=== PATIENT | male | born 1965 | race Caucasian/White ===

== ENCOUNTER 2016-10-09 03:37 | Observation (INO) | payer BC ==
[~2016-10-09] VITALS: Ht 167.6 cm; Wt 109.1 kg
--- NOTE | ~2016-10-09 | HEMODYNAMI ---
PATIENT:ZURI MIRAMONTES MEDICAL RECORD: [id number] : 67 [id number] ADMISSION DATE: 10/09/16 Generatedon:10/09/201613:28 Patient name: ZURI MIRAMONTES Patient #: [id number] SSN: : 1965 Date of study: 10/09/2016 Page: Of Hemodynamic Procedure Report Patient Data Patient Demographics Procedure consent was obtained First Name: ZURI Gender: Male Last Name: KULWINDER : 1965 Patient #: [id number] Age: 51 year(s) Race: Unknown Additional ID: [id number] Contact details [address]: [address] [place] [address] State: [place] City: [place] Zip code: [address] Admission Admission Data Admission Date: 10/09/2016 Admission Time: 5:22 Room #: D.2119 Weight (lbs.): 240.31 Weight (kg.): 109 Lab Results Lab Result Date: 10/09/2016 Lab Result Time: 0:00 Biochemistry Name Units Result Min Max BUN mg/dl 14 --(--*-)-- 7 18 Creatinine mg/dl 1.1 --(--*-)-- 0.6 1.3 CBC Name Units Result Min Max Hemoglobin g/dl 16 --(--*-)-- 13.5 17.5 Procedure Procedure Types Cath Procedure Diagnostic Procedure C [facility] w/Coronaries FFR/IVUS Intra-Coronary IVUS Initial PCI Procedure Coronary Stent Initial Miscellaneous Procedures Moderate Sedation up to 45 minutes Procedure Description Procedure Date Procedure Date: 10/09/2016 Procedure Start Time: 12:40 Procedure End Time: 13:27 Procedure Staff Name Function Gurwinder Proctor MD Performing Physician Lela Briscoe RN Nurse Brayden Ortega RT Monitor Mauricio Powers RT Scrub Procedure Data Cath Procedure Fluoroscopy Diagnostic fluoroscopy Total fluoroscopy Time: 6.3 time: 6.3 min min Diagnostic fluoroscopy Total fluoroscopy dose: dose: 1805 mGy 1805 mGy Contrast Material Contrast Material Type Amount (ml) Isovue 300 179 Entry Location Entry Primary Successful Side Size Upsize Upsize Entry Closure Succes sful Closure Location (Fr) 1 (Fr) 2 (Fr) Remarks Device Remarks Femoral Right 5 Fr 6 Fr Exoseal artery Short Estimated blood loss: 10 ml Diagnostic catheters Device Type Used For End Catheter Placement Cordis 5Fr JL 4.0 Procedure Catheter (MP) Cordis 5Fr 3DRC Catheter Procedure (MP) Cordis 5Fr Pigtail Procedure Catheter (MP) Procedure Complications No complications Procedure Medications Medication Administration Route Dosage Oxygen NC 2 l/min Heparin Flush Bag added to field 2 bags (1000units/500ml NS) Lidocaine 2% added to field 20 Versed I.V. 1 mg Fentanyl I.V. 50 mcg Fentanyl I.V. 50 mcg Versed I.V. 0.5 mg Versed I.V. 0.5 mg Heparin Bolus I.V. 17066 units Nitroglycerin IC/IA I.C. 100 mcg Solumedrol I.V. 125 mg Brilinta P.O. 180 mg Hemodynamics Rest HGB: 16 (g/dl) Heart Rate: 77 (bpm) Pressure Samples Time Site Value (mmHg) Purpose Heart Use Rate(bpm) 12:43 AO 102/74(86) Snapshot 72 12:47 LV 132/6,26 Snapshot 78 12:48 AO 141/82(105) Pullback 85 12:48 LV 126/13,26 Pullback 85 Gradients Valve Time Site 1 Site 2 Mean SEP/DFP Peak To Heart Use (mmHg) (sec/min) Peak Rate (mmHg) (bpm) Aortic 12:48 LV AO 0 6 0 85 126/13,26 141/82(105) Calculations Valve P-P Mean Valve Index Valve Source Name Gradient Area Flow (cm2) Aortic 0 0 0 0 Snapshots Pre Cath Intra NCS Post Cath Vital Signs Time Heart Resp SPO2 etCO2 [id number] NIBP (mmHg) Rhythm Pain Sedation Rate (ipm) (%) (mmHg) (mmHg) Status Level (bpm) 12:24:22 75 24 100 0 0 122/78(95) NSR 0 (11) 10(A) , No pain 12:28:32 74 24 100 0 0 118/77(107) NSR 0 (11) 10(A) , No pain 12:32:44 78 20 100 0 0 116/72(92) NSR 0 (11) 10(A) , No pain 12:36:52 82 18 99 0 0 115/74(95) NSR 0 (11) 10(A) , No pain 12:41:02 79 16 99 0 0 122/71(107) NSR 0 (11) 9(A) , No pain 12:45:11 84 16 96 0 0 116/77(100) NSR 0 (11) 9(A) , No pain 12:49:17 84 16 97 0 0 110/81(91) NSR 0 (11) 9(A) , No pain 12:53:21 83 17 95 0 0 117/81(92) NSR 0 (11) 9(A) , No pain 12:57:18 89 19 95 0 0 116/91(110) NSR 0 (11) 9(A) , No pain 13:01:26 90 19 97 0 0 108/75(94) NSR 0 (11) 9(A) , No pain 13:05:30 84 20 98 0 0 122/79(92) NSR 0 (11) 9(A) , No pain 13:09:42 76 18 100 0 0 126/75(91) NSR 0 (11) 9(A) , No pain 13:13:52 89 24 100 0 0 120/82(97) NSR 0 (11) 9(A) , No pain 13:17:17 112 22 100 0 0 104/86(103) NSR 0 (11) 10(A) , No pain 13:22:16 98 26 97 0 0 Measuring NSR 0 (11) 10(A) , No pain 13:23:32 98 26 97 0 0 Out of NSR 0 (11) 10(A) range , No pain 13:26:01 88 22 97 0 0 121/88(114) NSR 0 (11) 10(A) , No pain Medications Time Medication Route Dose Verified Delivered Reason Notes Effectiveness by by 12:28:09 Oxygen NC 2 Gurwinder Lela Per physician l/min Arnoldo Briscoe RN 12:28:16 Heparin Flush added 2 Gurwinder Gurwinder used for Bag to bags Arnoldo Proctor MD procedure (1000units/500ml field NS) 12:28:23 Lidocaine 2% added 20ml Gurwinder Gurwinder used for to vial Arnoldo Proctor MD procedure field 12:31:59 Versed I.V. 1 mg Gurwinder Lela for sedation Arnoldo Briscoe RN 12:32:06 Fentanyl I.V. 50 Gurwinder Lela for sedation mcg Arnoldo Briscoe RN 12:34:12 Fentanyl I.V. 50 Gurwinder Lela for sedation mcg Arnoldo Briscoe RN 12:34:17 Versed I.V. 0.5 Gurwinder Lela for sedation mg Arnoldo Briscoe RN 12:39:47 Versed I.V. 0.5 Gurwinder Lela for sedation mg Arnoldo Briscoe RN 12:53:10 Heparin Bolus I.V. 35861 Gurwinder Lela for dose v erified units Arnoldo Briscoe RN anticoagulation wtih dr proctor 13:12:49 Nitroglycerin I.C. 100 Gurwinder Gurwinder for IC/IA mcg Arnoldo Proctor MD vasodilation 13:18:01 Solumedrol I.V. 125 Gurwinder Lela Per physician pt hav ing mg Arnoldo Briscoe RN uncontrollable shivering, denies being cold. bairhugger is on and has been warming for entire case. dr proctor is aware and at bedside 13:21:48 Brilinta P.O. 180 Gurwinder Lela for mg Arnoldo Briscoe RN antiplatelet therapy Procedure Log Time Note 12:00:54 Mauricio Gio RT(R) sent for patient. Start room use. 12:06:56 Time tracking: Regular hours 12:07:00 Plan of Care:Hemodynamics will remain stable., Cardiac rhythm will remain stable., Comfort level will be maintained., Respiratory function will remain adequate., Patient/ family verbilizes understanding of procedure., Procedure tolerated without complication., Recovers from procedure without complications.. 12:17:14 Patient received from PCU to CCL 1 Alert and oriented. Tansferred to table in Supine position. 12:17:15 Warm blankets applied, and anette hugger turned on for patient comfort. 12:17:15 Correct patient and procedure confirmed by team. 12:17:17 Signed procedure consent form obtained from patient. 12:17:18 ECG and BP/O2 sat monitors applied to patient. 12:17:19 Full Disclosure recording started 12::21 Vital chart was started 12:28:09 Oxygen 2 l/min NC was administered by Lela Briscoe RN; Per physician; 12::16 Heparin Flush Bag (1000units/500ml NS) 2 bags added to field was administered by Gurwinder Proctor MD; used for procedure; :: Lidocaine 2% 20ml vial added to field was administered by Gurwinder Proctor MD; used for procedure; 12::30 Baseline sample Acquired. 12::34 Rhythm: sinus rhythm 12::53 H&P Date Dictated: 10/09/2016 Within 30 days and on chart.. 12::54 Pre-procedure instructions explained to patient. 12::54 Pre-op teaching completed and patient verbalized understanding. 12:29:55 Family in waiting room. 12:30:00 Patient NPO since Midnight. 12:30:02 Is the patient allergic to Iodine/contrast media? No. 12:30:03 Is patient on blood thinner?No 12:30:05 Patient diabetic? No. 12:30:08 Previous problem with sedation/anesthesia? No ? 12:30:10 Snore? Yes 12:30:11 Sleep apnea? Yes 12:30:13 Deviated septum? No 12:30:13 Opens mouth fully? Yes 12:30:14 Sticks out tongue? Yes 12:30:16 Airway obstruction? No ? 12:30:19 Dentures? No ? 12:30:29 Pre procedure: right dorsailis pedis pulse 1+ Palpable, but thready & weak; easily obliterated 12:30:30 FAILED YEHUDA'S 12:30:31 Modified Yehuda's test Ulnar > 7 seconds. 12:30:32 Patient pain scale 0/10 ?. 12:31:00 IV patent on arrival in left forearm with 0.9% NaCl at [facility]. 12:31:14 Lab results completed and on chart. 12::17 Right groin area was prepped with chlora-prep and draped in sterile fashion 12:31:18 Alarms reviewed by R. N. 12::19 Sharps counted by scrub and verified by R.N. 12::21 --------ALL STOP TIME OUT------ 12:31:21 Final Timeout: patient, procedure, and site verified with staff and physician. All members of the team are in agreement. 12:31:23 Right groin site verified by team. 12:31: Physical assessment completed. ASA score P 2 - A patient with mild systemic disease as per Gurwinder Proctor MD. 12:31:28 Sedation plan: IV Moderate Sedation Versed, Fentanyl 12:31:59 Versed 1 mg I.V. was administered by Lela Briscoe RN; for sedation; 12:32:06 Fentanyl 50 mcg I.V. was administered by Lela Briscoe RN; for sedation; 12:33:29 Use device set Femoral Dx 12:33:31 Tegaderm 4 x 4 opened to sterile field. 12:33:33 Acist Hand Control opened to sterile field. 12:33:33 Acist Manifold opened to sterile field. 12:33:34 Acist Syringe opened to sterile field. 12:33:35 Bag Decanter opened to sterile field. 12:33:35 Medline Cath Pack opened to sterile field. 12:33:35 Terumo 5Fr [place] Sheath opened to sterile field. 12:33:36 St Baljit 260cm J .035 wire opened to sterile field. 12:33:37 Diagnostic Infinity 5Fr Multipack catheter opened to sterile field. 12:34:08 Zero performed for pressure channel P1 12:34:12 Fentanyl 50 mcg I.V. was administered by Lela Briscoe RN; for sedation; 12:34:17 Versed 0.5 mg I.V. was administered by Lela Briscoe RN; for sedation; 12::43 Lab Result : Hemoglobin 16 g/dl 12::43 Lab Result : Creatinine 1.1 mg/dl 12:34:43 Lab Result : BUN 14 mg/dl 12:34:48 Patient Weight : 240.31 kg 12:39:47 Versed 0.5 mg I.V. was administered by Lela Briscoe RN; for sedation; 12:40:18 Procedure started. 12:40:22 Local anesthetic to right femoral artery with Lidocaine 2% by Gurwinder Proctor MD.INITIAL ACCESS ONLY 12:42:03 A 5 Fr sheath was inserted into the Right Femoral artery 12:42:34 A Cordis 5Fr JL 4.0 Catheter () was advanced over the wire and used for Procedure. 12:43:06 LCA angiography performed. 12:44:19 Catheter exchanged over wire. 12:44:29 A Cordis 5Fr 3DRC Catheter (MP) was advanced over the wire and used for Procedure. 12:45:46 RCA angiography performed. 12:46:01 Catheter exchanged over wire. 12:46:06 A Cordis 5Fr Pigtail Catheter (MP) was advanced over the wire and used for Procedure. 12:47:49 LV angiography performed. 12:47:51 LV gram done using SWAZI 12:47:57 EF : 50 % 12:48:12 LV hemodynamics recorded. 12:49:56 Injector settings: Ml/sec: 10, Volume: 20, 12:49:58 Catheter exchanged over wire. 12:50:39 Vox Mobileumo 6Fr [place] Sheath opened to sterile field. 12:50:39 Fantastec [employer] [place] 2 J-tip 300cm 0.014 guide wir opened to sterile field. 12:50:40 Cordis 6FR XBLAD 3.5 guide catheter opened to sterile field. 12:50:40 Synchris BasixCompak Inflation Kit opened to sterile field. 12:50:41 High Pressure Extension Tubing (Arnoldo) opened to sterile field. 12:51:27 [place] IVUS Catheter opened to sterile field. 12:51:39 Sheath upsized to a 6 Fr Short. 12:52:43 6 Fr XBLAD 3.5 guide catheter was inserted over the wire 12:53:10 Heparin Bolus 12549 units I.V. was administered by Lela Briscoe RN; for anticoagulation; dose verified wtih dr proctor 12:54:17 Guide Catheter removed. unable to cannulate vessel. 12:54:44 Cordis 6FR XBLAD 4.0 guide catheter opened to sterile field. 12:55:03 6 Fr XBLAD 4.0 guide catheter was inserted over the wire 12:55:57 Whisper wire advanced. 12:57:07 Wire advanced across lesion. 12:57:33 IVUS catheter advanced over wire. 12:58:52 IVUS pass to LAD lesion performed. 13:02:06 IVUS catheter removed over wire. 13:08:32 ACC PCI Site: mLAD has 70% stenosis. 13:08:34 ACC Pre-intervention ANITA Flow is 3. 13:11:07 Inflation Number: 1 A Medtronic Integrity 3.0 X 22 stent was prepped and advanced across the Mid LAD. The stent was deployed at 10 CHEO for 0:10 (min:sec). 13:12:47 ACC Post-intervention ANITA Flow is 3. 13:12:49 Nitroglycerin IC/IA 100 mcg I.C. was administered by Gurwinder Proctor MD; for vasodilation; 13:13:51 Stent catheter was removed intact over wire. 13:13:52 Wire removed. 13:13:53 Guide catheter removed. 13:14:13 Cordis 6Fr Exoseal opened to sterile field. 13:14:27 Sheath removed intact; hemostasis achieved with Exoseal to the Right Femoral artery. 13:14:30 Procedure ended.(Physican Out) 13:14:45 Fluoroscopy time 06.30 minutes. 13:14:49 Flurop Dose total: 1805 13:14:49 Fluoroscopy dose: 1805 mGy 13:14:54 Contrast amount:Isovue 300 179ml. 13:14:55 Sharps counted by scrub and verified by R.N. 13:15:03 Insertion/operative site no bleeding no hematoma. 13:15:08 Post-op/insertion site Right Femoral artery dressed using a 4 x 4 and Tegaderm. 13:15:09 Post Procedure Pulses reassessed and unchanged 13:15:12 Post-procedure physical assessment completed. ASA score P 2 - A patient with mild systemic disease as per Gurwinder Proctor MD. 13:15:15 Post procedure rhythm: unchanged. 13:15:27 Estimated blood loss: 10 ml 13:15:54 Post procedure instruction explained to patient.Patient verbalizes understanding. 13:15:54 Patient needs reinforcement of post procedure teaching. 13:16:38 Procedure type changed to Cath procedure, Diagnostic procedure, LHC, LHC w/Coronaries, FFR/IVUS, Intra-Coronary IVUS Initial, PCI procedure, Coronary Stent Initial, Miscellaneous Procedures, Moderate Sedation up to 45 minutes 13:18:01 Solumedrol 125 mg I.V. was administered by Lela Briscoe RN; Per physician; pt having uncontrollable shivering, denies being cold. bairhugger is on and has been warming for entire case. dr proctor is aware and at bedside 13:18:46 Procedure and supply charges have been captured, reviewed, submitted and are correct. 13:18:50 Procedure Complication : No complications 13:21:48 Brilinta 180 mg P.O. was administered by Lela Briscoe RN; for antiplatelet therapy; 13:27:27 Vital chart was stopped 13:27:28 See physician's report for complete and final results. 13:27:32 Report given to PCU. 13:27:37 Patient transfered to PCU with Bed. 13:27:40 Procedure ended. 13:27:40 Full Disclosure recording stopped 13:28:03 End room use (Document Last) Intervention Summary Intervention Notes Time ActionType Lesion and Equipment Action# Pressure Duration Attributes Used 13:11:07 Place stent Mid LAD Medtronic 1 10 00:10 Integrity 3.0 X 22 stent Device Usage Item Name Manufacture Quantity Catalog Hospital Part Current Minimal L ot# / Number Charge Number Stock Stock Serial# Code Tegaderm 4 3M 1 1626W [id number] 5 x 4 Acist Hand Acist 1 51008 083069 562250 794904 5 Control Medical Systems Inc Acist Acist 1 29412 880524 434639 789329 5 Manifold Medical Systems Inc Acist Acist 1 84142 633660 176963 839069 20 Syringe Medical Systems Inc Bag Microtek 1 2002S 529746 70054 265768 5 Decanter Medical Inc. Medline Cardinal 1 [id number] 308675 81901 050354 5 Cath Pack Health Terumo 5Fr Terumo 1 [id number] 747829 195086 726951 [address] [place] [address] Baljit 1 386957 348463 619038 088119 30 260cm J .035 wire Diagnostic Cardinal 1 [id number] 704627 80557 980337 30 Infinity Health 5Fr Multipack catheter Cordis 5Fr Cardinal 1 884322 5 JL 4.0 Health Catheter (MP) Cordis 5Fr Cardinal 1 342380 5 3DRC Health Catheter (MP) Cordis 5Fr Cardinal 1 279797 5 Pigtail Health Catheter (MP) Terumo 6Fr Terumo 1 [id number] 366167 682302 000763 40 [place] Sheath Agustin BMW Agustin 1 [id number] 619591 583292 128494 5 [place] 2 Vascular J-tip 300cm 0.014 guide wir Cordis 6FR Cardinal 1 [id number] 278432 925078 079282 10 XBLAD 3.5 Health guide catheter Merit Merit 1 [id number] 958126 740389 131933 15 BasixMonoLibrek Medical Inflation Kit High Merit 1 [id number] 945066 12992 228876 10 Pressure Medical Extension Tubing (Proctor) [place] 1 [id number] 558379 168792 030027 8 [place] IVUS Catheter Cordis 6FR Cardinal 1 [id number] 312558 786818 192684 3 XBLAD 4.0 Health guide catheter Medtronic Medtronic 1 [id number] 011727 964874 1 0 [id number] Integrity 3.0 X 22 stent Cordis 6Fr Cardinal 1 EX600 183809 184542 533747 10 Mixaloo Signature Audit [place] Stage Time Signature Unsigned Intra-Procedure 10/09/2016 Brayden Ortega 1:28:31 PM RT(R) Signatures Monitor : Brayden Ortega RT Signature : Date : Time : [place] [id number] [facility] [place] [address]
[2016-10-09 03:58] LABS: BASOPHILS 0.2 % (0-2); EOSINOPHILS 0.8 % (0-7); IMMATURE GRANULOCYTES 0.2 % (0-5); LYMPHOCYTES 21.3 % (15-50); MCH 32.7 pg (26.0-34.0); MCHC 34.8 g/dL (31.0-37.0); MCV 93.9 fL (80.0-100.0); MEAN PLATELET VOLUME 8.7 fL (7.4-10.4); MONOCYTES 15.3 % (2-11); NEUTROPHILS 62.2 % (40-80); PLATELET COUNT 197 10x3/uL (130-400); WBC 8.3 10x3/uL (4.8-10.8)
[2016-10-09 04:20] LABS: ALBUMIN 3.5 g/dL (3.4-5.0); ALKALINE PHOSPHATASE 70 U/L (46-116); ALT (SGPT) 58 U/L (10-68); CALC OSMOLALITY 269 mosm/kg (275-300); CALCIUM 8.5 mg/dL (8.5-10.1); CARBON DIOXIDE 24.4 mmol/L (21.0-32.0); CHLORIDE - SERUM 100 mmol/L (98-107); CREATININE - SERUM 1.1 mg/dL (0.6-1.3); GLUCOSE 116 mg/dL (74-106); PROTEIN - SERUM 7.3 g/dL (6.4-8.2); SODIUM 134 mmol/L (136-145); UREA NITROGEN 14 mg/dL (7-18); eGFR NON AFRICAN AMERICAN 75 mL/min (90-120)
[2016-10-09 04:32] LABS: CHOL - HDL RATIO 3.6 ratio (2.3-4.9); CHOLESTEROL, TOTAL 164 mg/dL (0-200); CKMB 2.2 U/L (0.0-3.6); CREATINE KINASE 340 UL (21-232); HDL CHOLESTEROL 46 mg/dL (32-96); LDL CHOLESTEROL 93 mg/dL (0-100); TRIGLYCERIDE 128 mg/dL (30-200); TROPONIN-I < 0.017 ng/mL (0.000-0.060)
--- NOTE | 2016-10-09 05:39 | NUR ---
REPORT FROM ALESSANDRO BURKETT.
--- NOTE | 2016-10-09 05:52 | NUR ---
ARRIVED TO FLOOR VIA WHEELCHAIR, ACCOMPANIED BY HOSPITAL STAFF AND FAMILY. PLACED ON TELEMETRY, ORIENTED TO UNIT. CALL LIGHT IN REACH. SEE NURSE ASSESSMENT.
[2016-10-09 06:12] VITALS: BP 103/59; Ht 167.6 cm; Wt 109.1 kg
[2016-10-09] MEDS ORDERED: ZOFRAN ODT4 MG/UDTAB PO (06:16)
[2016-10-09] MEDS ORDERED: ZESTRIL40 MG PO (06:17)
[2016-10-09] MEDS ORDERED: ADIPEX-P37.5 M1 PO (06:17)
[2016-10-09] MEDS ORDERED: FLUTICASONE PRO16 GM NASAL (06:18)
[2016-10-09] MEDS ORDERED: CLARITIN 10 MG10 MG PO (06:18)
[2016-10-09] MEDS ORDERED: BAYER CHEWABLE81 MG PO ×2 (06:19→15:57)
[2016-10-09 08:00] VITALS: BP 104/67
--- NOTE | 2016-10-09 08:20 | NUR ---
INTRODUCED MYSELF TO PT PRIMARY RN FOR TODAYS SHIFT. SHIFT ASSESSMENT COMPLETED. TELEMETRY IN PLACE RUNNING SR 80S. HEART SOUNDS NOTED RRR. PT DENIES ANY CP SINCE HE HAS BEEN ADMITTED AND STATES THE NITRO PATCH IS HELPING. FLUSHED PTS L.AC PIV WITHOUT ANY DIFFICULTIES, DRSG CDI AND SWAB CAPS IN USE. PT WILL HAVE A CATH LATER TODAY WITH , CONSENTS OBTAINED AND PLACED IN CHART, PT VERBALIZED UNDERSTANDING AND DENIES ANY QUESTIONS WITH IT. PT SITTING UP IN BED WITH AT BEDSIDE DENIES ANY CURRENT PAIN OR NEEDS. CL IN REACH, BED IN LOWEST, SIDE RAILS X2. WILL CPOC.
[2016-10-09 08:34] LABS: CALC OSMOLALITY 273 mosm/kg (275-300); CALCIUM 8.5 mg/dL (8.5-10.1); CARBON DIOXIDE 26.8 mmol/L (21.0-32.0); CHLORIDE - SERUM 101 mmol/L (98-107); CKMB 1.9 U/L (0.0-3.6); CREATINE KINASE 293 UL (21-232); CREATININE - SERUM 1.1 mg/dL (0.6-1.3); GLUCOSE 109 mg/dL (74-106); POTASSIUM - SERUM 3.9 mmol/L (3.5-5.1); SODIUM 136 mmol/L (136-145); TROPONIN-I < 0.017 ng/mL (0.000-0.060); UREA NITROGEN 14 mg/dL (7-18); eGFR NON AFRICAN AMERICAN 75 mL/min (90-120)
[2016-10-09 12:00] VITALS: BP 108/67
--- NOTE | 2016-10-09 12:18 | NUR ---
MAT ROLLER CALLED TO PRE-OP PT. PRE-OP COMPLETED. PT LEAVING FOR PROCEDURE AT THIS TIME.
--- NOTE | 2016-10-09 14:07 | NUR ---
PT BACK FROM ENVIRONMENT COORDINATOR AND LYING FLAT. PT AWAKE BUT VERY DROWSY, AT BEDSIDE AND PT VERBALIZED UNDERSTANDING TO LAY FLAT FOR 4 HOURS. CONNECTED PT TO HIS NS FLUIDS INFUSING VIA L.AC PIV @100ML/HR. PT HAS A CLEMENCIA DRSG THAT IS CDI NO S/S OF HEMATOMA OR BLEEDING NOTED. PERIPHERAL PULSES INTACT. VITALS SIGNS STABLE WITH SLIGHT TEMP OF 99.2, WILL CONTINUE TO MONITER CLOSELY. NO FURTHER NEEDS NOTED AT THIS TIME.
--- NOTE | 2016-10-09 14:38 | NUR ---
PTS TEMP DOWN TO 98.7 NOW. PT AWAKE AND VISITING WITH , STILL LYING FLAT WITH R.GROIN DRSG CDI NO S/S OF HEMATOMA OR BLEEDING NOTED. PERIPHERAL PULSES INTACT. WILL CTM.
[2016-10-09] MEDS ORDERED: BRILINTA90 MG PO (15:57)
--- NOTE | 2016-10-09 16:30 | NUR ---
VSS. KHANNA DRSG CDI NO S/S OF HEMATOMA OR BLEEDING NOTED. PT LYING FLAT RESTING QUIETLY IN BED WITH AT BEDSIDE. PERIPHERAL PULSES INTACT. PT DENIES ANY CURRENT NEEDS. WILL CTM.
--- NOTE | 2016-10-09 18:01 | NUR ---
PTS 4 HOUR LAY COMPLETE. R.GROIN DRSG STILL CDI NO S/S OF HEMATOMA OR BLEEDING NOTED. PERIPHERAL PULSES INTACT. VSS. PT READY TO GET UP AND GET DRESSED AT BEDSIDE TO ASSIST. WILL CTM.
--- NOTE | 2016-10-09 18:34 | NUR ---
PT READY TO D/C. D/C PTS R.AC PIV WITH CATHETER TIP FULLY INTACT. TELEMETRY RETURNED TO [facility]. BELONGINGS COLLECTED AND DISCHARGE TEACHING PROVIDED PT VERBALIZED UNDERSTANDING AND DENIES ANY QUESTIONS OR CONCERNS.
== END 2016-10-09 18:38 | disposition home or self-care (01) ==
LOC: D.ER 03:37 → D.M2 05:22 → OBSVTIME 05:23 → D.M2 18:38
PROVIDERS: Emergency Medicine; ADMIT Internal Medicine Cardiovascular Disease
DX: I25.110 Atherosclerotic heart disease of native coronary artery with unstable angina pectoris (principal); Z87.891 Personal history of nicotine dependence; I10 Essential (primary) hypertension

== ENCOUNTER 2017-03-28 17:48 | Emergency (ER) | payer BC ==
[2016-10-09 06:12] VITALS: BMI 38.8
[~2017-03-28 17:48] MED LIST: ADIPEX-P37.5 M1 PO; BAYER CHEWABLE81 MG PO; BRILINTA90 MG PO; CLARITIN 10 MG10 MG PO; FLUTICASONE PRO16 GM NASAL; ZESTRIL40 MG PO; ZOFRAN ODT4 MG/UDTAB PO
== END 2017-03-28 19:17 | disposition home or self-care (01) ==
LOC: D.ER 17:48
DX: S61.412A Laceration without foreign body of left hand, initial encounter (principal); W26.0XXA Contact with knife, initial encounter; Y93.89 Activity, other specified; Y92.019 Unspecified place in single-family (private) house as the place of occurrence of the external cause; I10 Essential (primary) hypertension

== ENCOUNTER 2017-10-18 08:41 | Emergency (ER) | payer BC ==
[~2017-10-18] VITALS: Ht 167.6 cm; Wt 116.8 kg
[2017-10-18 08:45] VITALS: Ht 167.6 cm; Wt 116.8 kg
[2017-10-18] MEDS ORDERED: IBUPROFEN800 MG PO (08:51)
[2017-10-18] MEDS ORDERED: PEPCID20 MG PO (08:51)
[2017-10-18 11:07] VITALS: BP 153/92
== END 2017-10-18 11:06 | disposition home or self-care (01) ==
LOC: D.ER 08:41
DX: M25.561 Pain in right knee (principal); I10 Essential (primary) hypertension

== ENCOUNTER 2017-12-02 09:02 | Emergency (ER) | payer BC ==
[~2017-12-02] VITALS: Ht 167.6 cm; Wt 115.9 kg
[~2017-12-02 09:02] MED LIST changes: +IBUPROFEN800 MG PO; +PEPCID20 MG PO
[2017-12-02 09:12] VITALS: Ht 167.6 cm; Wt 115.9 kg
[2017-12-02] MEDS ORDERED: NIFEDIPINE ER30 MG PO (09:15)
[2017-12-02] MEDS ORDERED: EFFEXOR75 MG PO (09:16)
[2017-12-02] MEDS ORDERED: TRAZODONE HCL50 MG PO (09:16)
[2017-12-02] MEDS ORDERED: ULTRAM50 MG PO (09:16)
[2017-12-02] MEDS ORDERED: ERYTHROMYCIN OPT1 GM LEFT EYE (10:39)
[2017-12-02 10:46] VITALS: BP 137/94
== END 2017-12-02 10:47 | disposition home or self-care (01) ==
LOC: D.ER 09:02
DX: S05.02XA Injury of conjunctiva and corneal abrasion without foreign body, left eye, initial encounter (principal); X58.XXXA Exposure to other specified factors, initial encounter; Y93.89 Activity, other specified; Y92.019 Unspecified place in single-family (private) house as the place of occurrence of the external cause; I10 Essential (primary) hypertension